=== PATIENT | female | born 1965 | race Caucasian/White ===

== ENCOUNTER → 2018-03-09 | Outpatient (CLI) | payer BC, OTHER ==
[~2018-03-09] VITALS: Ht 157.5 cm; Wt 63.5 kg
[~2018-03-09] MED LIST: ALPRAZOLAM ER1 MG PO; DIPHENHIST50 MG PO; LAMICTAL100 MG PO; RESTORIL30 MG PO
--- NOTE | ~2018-03-09 | PATH ---
[facility] [address] [place] [address] PATHOLOGY RPT PROCEDURE Name: LASHELL PRASAD Room #: [facility].#: [id number] Admission: 03/09/18 Date of : 67 Discharge: Report #: [id number] Path Case #: [id number] [facility] Accession Number: [id number] . 01 Material submitted: . POLYP AT DESCENDING COLON . 01 Clinical history: . Screening . 02 Diagnosis: Polyp, at descending colon, endoscopic biopsy: - Inflamed hyperplastic polyp. - Negative for dysplasia. (IUV:pit 03/10/2018) QTP/03/10/2018 . 02 Electronically signed: . Jessica Ramos MD, Pathologist NPI- [id number] . 01 Gross description: . Received in formalin labeled "Lashell Prasad, descending colon polyp," is a single segment of buchanan soft tissue measuring 0.3 cm in maximum dimension. The specimen is entirely submitted in cassette A1. (TSD; 03/09/2018) TOB/TOB . 02 Pathologist provided ICD-10: K63.5 . 02 CPT . 854775 Specimen Comment: A courtesy copy of this report has been sent to Specimen Comment: [phone], . Specimen Comment: Report sent to / DR BOYER Performed at: [address], [place] [id number] MD Eloy Thomas MD Phone: [phone] Performed at: [address] [id number] MD Jessica Ramos MD Phone: [phone]
== END | disposition home or self-care (01) ==
LOC: GI 09:34
DX: Z12.11 Encounter for screening for malignant neoplasm of colon (principal); K63.5 Polyp of colon; F32.9 Major depressive disorder, single episode, unspecified; F41.9 Anxiety disorder, unspecified; F17.210 Nicotine dependence, cigarettes, uncomplicated; Z90.710 Acquired absence of both cervix and uterus; Z98.51 Tubal ligation status; Z98.890 Other specified postprocedural states; Z88.8 Allergy status to other drugs, medicaments and biological substances; Z79.899 Other long term (current) drug therapy
CPT/HCPCS: 62110; 62900